=== PATIENT | male | born 2000 | race Caucasian/White ===

== ENCOUNTER 2023-05-05 12:49 | Emergency (ER) | payer OTHER, SELFPAY ==
[2023-05-05] VITALS (17 sets, daily range): BP systolic 121–150; BP diastolic 56–91; PULSE 71–105; RESP 14–27; TEMP 37.1; O2SAT 95–100; BMI 20.7
--- NOTE | 2023-05-05 | CRLHL7_ITS ---
For Patients: As a result of the Century Cures Act, medical imaging exams and procedure reports are released immediately into your electronic medical record. You may view this report before your referring provider. If you have questions, please contact your health care provider. INDICATION: Stroke. COMPARISON: None. TECHNIQUE: CT of the brain/head without the use of IV contrast. Multiplanar axial, coronal, and sagittal reformats were reconstructed. FINDINGS: The exam normal merida-white matter differentiation throughout. No intracranial hemorrhage. No mass, mass effect, or midline shift. The ventricles are normal in size and shape. No fracture or focal osseous lesion. The mastoid and middle ears are clear. The paranasal sinuses are clear. Included orbit and globe are normal. IMPRESSION: Normal head CT. Please note that all CT scans at this facility use dose modulation, iterative reconstruction, and/or weight-based dosing when appropriate to reduce radiation dose to as low as reasonably achievable. Dictated by Kim Salazar MD @ 05/05/2023 1:19:44 PM (Electronically Signed)
--- NOTE | 2023-05-05 13:00 | CRLHL7_ITS ---
For Patients: As a result of the Century Cures Act, medical imaging exams and procedure reports are released immediately into your electronic medical record. You may view this report before your referring provider. If you have questions, please contact your health care provider. CT ANGIOGRAM HEAD DATE: 05/05/2023 CLINICAL HISTORY: Patient with left-sided weakness. TECHNIQUE: Standard helical CT image acquisition through the intracranial circulation following intravenous administration of contrast material with bolus tracking. 2D and 3D MIP images for post-processing were performed and interpreted on an independent workstation and 3D images were permanently archived. COMPARISON: CT same day. FINDINGS: There is no proximal intracranial large vessel occlusion. There is no intracranial aneurysm. The right internal carotid artery is normal. The right middle cerebral artery and its branches are normal. The right anterior cerebral artery and its branches are normal. The left internal carotid artery is normal. The left middle cerebral artery and its branches are normal. The left anterior cerebral artery and its branches are normal. The anterior communicating artery is well visualized and appears normal. The right vertebral artery and PICA are normal. The left vertebral artery and PICA are normal. The left vertebral artery is dominant. The basilar artery is patent and appears normal. The right posterior cerebral artery is normal. The left posterior cerebral artery is normal. The visualized venous structures are patent. IMPRESSION: Patent proximal intracranial vasculature. Please note that all CT scans at this facility use dose modulation, iterative reconstruction, and/or weight-based dosing when appropriate to reduce radiation dose to as low as reasonably achievable. Dictated by: Romel Holliday MD @ 05/05/2023 13:58:44 (Electronically Signed)
--- NOTE | 2023-05-05 13:00 | CRLHL7_ITS ---
For Patients: As a result of the Century Cures Act, medical imaging exams and procedure reports are released immediately into your electronic medical record. You may view this report before your referring provider. If you have questions, please contact your health care provider. CT ANGIOGRAM NECK DATE: 05/05/2023 CLINICAL HISTORY: Patient with left-sided weakness. TECHNIQUE: Standard helical CT image acquisition of the neck up to the skull base after bolus intravenous contrast enhancement. 2D and 3D MIP images for post-processing were performed and interpreted on an independent workstation and 3D images were permanently archived. COMPARISON: CT same day. FINDINGS: The origins of the great vessels from the aortic arch are patent. The origin of the right vertebral artery is patent. The origin of the left vertebral artery is patent. The common carotid arteries are patent. There is no stenosis at the origin of the right internal carotid artery. There is no stenosis at the origin of the left internal carotid artery. The rest of the cervical segments of the internal carotid arteries are patent up to the skull base. The vertebral arteries are codominant. The cervical segments of the vertebral arteries are patent up to the skull base. The visualized lung apices are unremarkable. The thyroid gland is unremarkable. The soft tissues of the neck are unremarkable. There are degenerative changes in the cervical spine. IMPRESSION: Normal CTA of the neck. Please note that all CT scans at this facility use dose modulation, iterative reconstruction, and/or weight-based dosing when appropriate to reduce radiation dose to as low as reasonably achievable. Dictated by: Romel Holliday MD @ 05/05/2023 13:57:33 (Electronically Signed)
[2023-05-05 13:12] LABS: Basophils Absolute Auto 0.03 K/uL (0.00-0.30); Basophils Percent Auto 0.4 % (0.0-3.0); Eosinophils Absolute Auto 0.04 K/uL (0.00-0.50); Eosinophils Percent Auto 0.5 % (0.0-7.0); Hematocrit 42.6 % (37.0-53.0); Hemoglobin* 14.6 gm/dL (13.5-17.5); Lymphocytes Absolute Auto 2.41 K/uL (0.90-2.90); Lymphocytes Percent Auto 31.2 % (20-44); Mean Corpuscular HGB Conc 34 gm/dL (32-36); Mean Corpuscular Hemoglobin 31 pg (26-34); Mean Corpuscular Volume 91 fL (80-100); Monocytes Percent Auto 7.6 % (0.0-11.0); Neutrophils Absolute Auto 4.66 K/uL (1.7-7.0); Neutrophils Percent Auto 60.3 % (42.0-72.0); Platelet Count* 410 K/uL (140-440); RDW Coefficient of Variation % 11.3 % (11.5-15.5); Red Blood Count 4.69 m/uL (4.30-5.90); White Blood Count* 7.73 K/uL (4.50-11.00)
[2023-05-05 13:16] LABS: Slide Review Reflex No
[2023-05-05 13:23] LABS: Chloride* 104 mmol/L (96-114); Potassium* 3.7 mmol/L (3.6-5.1); Sodium* 140 mmol/L (135-149)
[2023-05-05 13:26] LABS: Anion Gap 12 mEq/L (7-15); Blood Urea Nitrogen* 15 mg/dL (5-24); Carbon Dioxide* 24 mmol/L (20-32); Creatinine* 0.8 mg/dL (0.5-1.5); Est. Creatinine Clearance* 154.26; Estimated Glomerular Filt Rate 128 ml/min; INR 1.06 (0.91-1.10); Prothrombin Time 14.5 Seconds
[2023-05-05 13:27] LABS: Calcium* 9.8 mg/dL (8.4-10.6); Glucose* 87 mg/dL (60-115); Partial Thromboplastin Time* 27 Seconds (23-33)
--- NOTE | 2023-05-05 14:00 | ED_ITS ---
HPI - General Adult General Chief complaint: Weakness <Leandra Howell MD - Last Filed: 05/05/23 15:20> Stated complaint: difficulty breathing,muscles locked up <Leandra Howell MD - Last Filed: 05/05/23 15:20> Time Seen by Provider: 05/05/23 13:01 <Leandra Howell MD - Last Filed: 05/05/23 15:20> Source: patient <Leandra Howell MD - Last Filed: 05/05/23 15:20> Mode of arrival: ambulatory <Leandra Howell MD - Last Filed: 05/05/23 15:20> Limitations: no limitations <Leandra Howell MD - Last Filed: 05/05/23 15:20> History of Present Illness HPI narrative: 22-year-old male presenting today with left-sided weakness. Patient states that this is the 3rd time this has happened to him this year. The 1st time and 2nd time both went away on their own. States that he can not really move the left side of his body. It started off with tingling that started on the top of his head, moved down his face, into his torso and arm, down into his leg and foot. He also complains of right sided hand and forearm tingling. He states that his hands are both cramps and he can not move them. He also had speech difficulty earlier where he could not talk. He stated that his tongue felt thick and swollen and words when not come out. This has since resolved, however patient tells me that it will happen again as it has come and gone 3 times since all of his symptoms started at 12:30 p.m. this afternoon. He does feel like his symptoms in general are slowly getting better. Patient has a history of ?really bad depression and anxiety?. He states that all the medications he has tried in the past have caused him to become suicidal, therefore he is not on any medications and he does not see a therapist. He does have a history of panic attacks. <Leandra Howell MD - Last Filed: 05/05/23 15:20> Related Data Home medications: Home Medications Medication Instructions Recorded Confirmed No Known Home Medications 05/05/23 05/05/23 <Leandra Howell MD - Last Filed: 05/05/23 15:20> Allergies/adverse reactions: Allergies Allergy/AdvReac Type Severity Reaction Status Date / Time amoxicillin Allergy Unknown Verified 05/05/23 13:24 <Leandra Howell MD - Last Filed: 05/05/23 15:20> Review of Systems Status of ROS: Reports: 10 or more systems reviewed and unremarkable except as noted in History and below <Leandra Howell MD - Last Filed: 05/05/23 15:20> PFSH PFS Social History: Social History Smoking Status: Current every day smoker Do you use any of these nicotine containing products: E-Cigarettes and Vaping Products Second hand tobacco smoke exposure: No How often do you have a drink containing alcohol: never AUDIT-C Alcohol total score: 0 Non-prescribed substance use: marijuana (any form) <Leandra Howell MD - Last Filed: 05/05/23 15:20> Exam Narrative: Exam Narrative: Well-nourished well-developed patient in no acute distress. Alert and oriented x3. Answers questions appropriately. Mood is anxious but affect is appropriate. Thoughts are goal oriented and rational. No tangential or magical thinking noted. Patient speaks in full sentences without needing to catch his breath. He does pause a few times in states ?words are hard?. HEENT: Normocephalic atraumatic. Pupils are equally round reactive to light. Extraocular muscles are intact. Conjunctivae are moist without any icterus noted. Moist mucous membranes. Posterior pharynx is normal. Neck is soft without any lymphadenopathy or thyromegaly. No masses are appreciated. Cardiovascular: Heart is regular rate and rhythm S1 and S2 are present without any murmurs. Lungs: Clear to auscultation bilaterally no wheezes rhonchi or rales are appreciated. Patient takes deep breaths without any discomfort. Abdomen: Soft and nontender nondistended with normal bowel sounds. No guarding or rebound. No masses or organomegaly appreciated. Extremities: Bilateral lower extremities are without edema. Normal DP and PT pulses. Skin: Well perfused without any obvious rashes. Reflexes are 2+ and symmetric at the knees. Patient states that he cannot stand and so I cannot perform a Romberg test. Cranial nerves 3-12 are entirely normal. There is no nystagmus either horizontally or vertically. And patient does not ambulate at my request. When asked the patient to lift arms off the bed both the left and the right arm move very slowly and he seems to be straining very hard to move either arm. Same thing occurs with his legs, however he barely lifts the left leg off the bed. He does not have any movement at the ankle and feet of the left or the right when I ask him to move, until I remind him to flex and extend bilaterally. <Leandra Howell MD - Last Filed: 05/05/23 15:20> Const: Vital Signs, click to edit/add: Vital Signs - 24 hr 05/05/23 12:50 05/05/23 13:00 05/05/23 13:00 Temperature 98.8 F Pulse Rate Pulse Rate [Pulse Oximeter] 91 91 Respiratory Rate 18 Blood Pressure Blood Pressure [Le ft Upper Arm] 142/82 H Pulse Oximetry 100 100 Oxygen Delivery Me thod Room Air 05/05/23 13:00 05/05/23 13:00 05/05/23 13:00 Temperature Pulse Rate Pulse Rate [Pulse Oximeter] 105 H 105 H Respiratory Rate 24 27 H Blood Pressure Blood Pressure [Le ft Upper Arm] 131/63 Pulse Oximetry 100 100 Oxygen Delivery Mt thod Room Air Room Air 05/05/23 13:15 05/05/23 13:15 05/05/23 13:30 Temperature Pulse Rate Pulse Rate [Pulse Oximeter] 96 96 96 Respiratory Rate 24 Blood Pressure Blood Pressure [Le ft Upper Arm] 150/91 H Pulse Oximetry 100 Oxygen Delivery Mt thod Room Air 05/05/23 13:30 05/05/23 13:45 05/05/23 13:45 Temperature Pulse Rate Pulse Rate [Pulse Oximeter] 96 101 H 99 Respiratory Rate 18 18 Blood Pressure Blood Pressure [Le ft Upper Arm] 137/81 121/70 Pulse Oximetry 100 99 Oxygen Delivery Me thod Room Air Room Air 05/05/23 14:00 05/05/23 14:00 05/05/23 14:15 Temperature Pulse Rate Pulse Rate [Pulse Oximeter] 83 83 76 Respiratory Rate 18 16 Blood Pressure Blood Pressure [Le ft Upper Arm] 127/75 122/62 Pulse Oximetry 95 96 Oxygen Delivery Me thod Room Air Room Air 05/05/23 14:15 05/05/23 14:30 05/05/23 14:30 Temperature Pulse Rate Pulse Rate [Pulse Oximeter] 76 74 74 Respiratory Rate 16 Blood Pressure Blood Pressure [Le ft Upper Arm] 121/58 L Pulse Oximetry 98 Oxygen Delivery Me thod Room Air 05/05/23 14:45 05/05/23 14:45 05/05/23 15:00 Temperature Pulse Rate Pulse Rate [Pulse Oximeter] 72 72 71 Respiratory Rate 14 14 Blood Pressure Blood Pressure [Le ft Upper Arm] 143/62 H 136/73 Pulse Oximetry 98 98 Oxygen Delivery Me thod Room Air Room Air 05/05/23 15:00 05/05/23 15:30 05/05/23 15:30 Temperature Pulse Rate Pulse Rate [Pulse Oximeter] 71 74 74 Respiratory Rate 14 Blood Pressure Blood Pressure [Le ft Upper Arm] 122/72 Pulse Oximetry 96 Oxygen Delivery Me thod Room Air 05/05/23 16:00 05/05/23 16:02 Temperature Pulse Rate 74 71 Pulse Rate [Pulse Oximeter] Respiratory Rate Blood Pressure 121/56 L Blood Pressure [Le ft Upper Arm] Pulse Oximetry 98 97 Oxygen Delivery Me thod <Leandra Howell MD - Last Filed: 05/05/23 15:20> Vital Signs, click to edit/add: Vital Signs - 24 hr 05/05/23 12:50 05/05/23 13:00 05/05/23 13:00 Temperature 98.8 F Pulse Rate Pulse Rate [Pulse Oximeter] 91 91 Respiratory Rate 18 Blood Pressure Blood Pressure [Le ft Upper Arm] 142/82 H Pulse Oximetry 100 100 Oxygen Delivery Me thod Room Air 05/05/23 13:00 05/05/23 13:00 05/05/23 13:00 Temperature Pulse Rate Pulse Rate [Pulse Oximeter] 105 H 105 H Respiratory Rate 24 27 H Blood Pressure Blood Pressure [Le ft Upper Arm] 131/63 Pulse Oximetry 100 100 Oxygen Delivery Me thod Room Air Room Air 05/05/23 13:15 05/05/23 13:15 05/05/23 13:30 Temperature Pulse Rate Pulse Rate [Pulse Oximeter] 96 96 96 Respiratory Rate 24 Blood Pressure Blood Pressure [Le ft Upper Arm] 150/91 H Pulse Oximetry 100 Oxygen Delivery Me thod Room Air 05/05/23 13:30 05/05/23 13:45 05/05/23 13:45 Temperature Pulse Rate Pulse Rate [Pulse Oximeter] 96 101 H 99 Respiratory Rate 18 18 Blood Pressure Blood Pressure [Le ft Upper Arm] 137/81 121/70 Pulse Oximetry 100 99 Oxygen Delivery Me thod Room Air Room Air 05/05/23 14:00 05/05/23 14:00 05/05/23 14:15 Temperature Pulse Rate Pulse Rate [Pulse Oximeter] 83 83 76 Respiratory Rate 18 16 Blood Pressure Blood Pressure [Le ft Upper Arm] 127/75 122/62 Pulse Oximetry 95 96 Oxygen Delivery Me thod Room Air Room Air 05/05/23 14:15 05/05/23 14:30 05/05/23 14:30 Temperature Pulse Rate Pulse Rate [Pulse Oximeter] 76 74 74 Respiratory Rate 16 Blood Pressure Blood Pressure [Le ft Upper Arm] 121/58 L Pulse Oximetry 98 Oxygen Delivery Me thod Room Air 05/05/23 14:45 05/05/23 14:45 05/05/23 15:00 Temperature Pulse Rate Pulse Rate [Pulse Oximeter] 72 72 71 Respiratory Rate 14 14 Blood Pressure Blood Pressure [Le ft Upper Arm] 143/62 H 136/73 Pulse Oximetry 98 98 Oxygen Delivery Me thod Room Air Room Air 05/05/23 15:00 05/05/23 15:30 05/05/23 15:30 Temperature Pulse Rate Pulse Rate [Pulse Oximeter] 71 74 74 Respiratory Rate 14 Blood Pressure Blood Pressure [Le ft Upper Arm] 122/72 Pulse Oximetry 96 Oxygen Delivery Me thod Room Air 05/05/23 16:00 05/05/23 16:02 Temperature Pulse Rate 74 71 Pulse Rate [Pulse Oximeter] Respiratory Rate Blood Pressure 121/56 L Blood Pressure [Le ft Upper Arm] Pulse Oximetry 98 97 Oxygen Delivery Me thod <True Rodríguez MD - Last Filed: 05/05/23 18:53> Course Course ED Course: Upon triage-patient went straight to head CT given his stroke like symptoms. Head CT, head and neck CT were all unremarkable. I went to examine the patient at this time, see exam above. Approximately 3 minutes after I left the room I did see the patient walk to the bathroom without assistance the despite not being able to move the left leg off the bed when asked to. EKG, read by me, shows sinus tachycardia with a pulse of 112. Lab work is completely unremarkable. Did consult with Dr. Yin, neurologist at [facility], who did recommend a brain MRI with and without contrast. <Leandra Howell MD - Last Filed: 05/05/23 15:20> Vital Signs Vital signs: Initial Vital Signs Pulse Rate 91 05/05/23 12:50 Vital Signs Pulse Rate 91 05/05/23 12:50 Temperature 98.8 F 05/05/23 13:00 Pulse Rate 71 05/05/23 16:02 Respiratory Rate 14 05/05/23 15:30 Blood Pressure 121/56 L 05/05/23 16:02 Pulse Oximetry 97 05/05/23 16:02 Oxygen Delivery Method Room Air 05/05/23 15:30 <Leandra Howell MD - Last Filed: 05/05/23 15:20> Initial Vital Signs Pulse Rate 91 05/05/23 12:50 Vital Signs Pulse Rate 91 05/05/23 12:50 Temperature 98.8 F 05/05/23 13:00 Pulse Rate 71 05/05/23 16:02 Respiratory Rate 14 05/05/23 15:30 Blood Pressure 121/56 L 05/05/23 16:02 Pulse Oximetry 97 05/05/23 16:02 Oxygen Delivery Method Room Air 05/05/23 15:30 <True Rodríguez MD - Last Filed: 05/05/23 18:53> Medical Decision Making MDM Narrative Medical decision making narrative: 22-year-old male with neurologic symptoms, not caused by a stroke. I do believe symptoms are likely secondary to untreated anxiety. Recommend that he follow up with primary care provider to discuss next steps in treatment. Patient states that he already attempted to call a therapist and set up an appointment this morning. <Leandra Howell MD - Last Filed: 05/05/23 15:20> 22-year-old male with neurologic symptoms, not caused by a stroke. I do believe symptoms are likely secondary to untreated anxiety. Recommend that he follow up with primary care provider to discuss next steps in treatment. Patient states that he already attempted to call a therapist and set up an appointment this morning. MRI is obtained and results from radiologist show no acute findings. I did relay these results to the patient who is thoroughly reassured with a good workup today. He does have plans to connect with a therapist for management of his anxiety symptoms. <True Rodríguez MD - Last Filed: 05/05/23 18:53> Lab Data Lab results reviewed: Yes I reviewed the patient's lab results <Leandra Howell MD - Last Filed: 05/05/23 15:20> Labs: Lab Results 05/05/23 Range/Units 13:06 WBC 7.73 (4.50-11.00) K/uL RBC 4.69 (4.30-5.90) m/uL Hgb 14.6 (13.5-17.5) gm/dL Hct 42.6 (37.0-53.0) % MCV 91 (80-100) fL MCH 31 (26-34) pg MCHC 34 (32-36) gm/dL RDW Coeff of Rosmery 11.3 L (11.5-15.5) % Plt Count 410 (140-440) K/uL Neut % (Auto) 60.3 (42.0-72.0) % Lymph % (Auto) 31.2 (20-44) % [place] % (Auto) 7.6 (0.0-11.0) % Eos % (Auto) 0.5 (0.0-7.0) % Baso % (Auto) 0.4 (0.0-3.0) % Neut # (Auto) 4.66 (1.7-7.0) K/uL Lymph # (Auto) 2.41 (0.90-2.90) K/uL [place] # (Auto) 0.60 (0.00-0.90) K/UL Eos # (Auto) 0.04 (0.00-0.50) K/uL Baso # (Auto) 0.03 (0.00-0.30) K/uL Abs Immat Gran (auto) 0.00 (0.00-0.30) K/uL Imm/Tot Granulo (auto) 0.0 % INR 1.06 (0.91-1.10) APTT 27 (23-33) Seconds Sodium 140 (135-149) mmol/L Potassium 3.7 (3.6-5.1) mmol/L Chloride 104 (96-114) mmol/L Carbon Dioxide 24 (20-32) mmol/L Anion Gap 12 (7-15) mEq/L BUN 15 (5-24) mg/dL Creatinine 0.8 (0.5-1.5) mg/dL Estimated Creat Clear 154.26 Estimated GFR 128 ml/min Glucose 87 (60-115) mg/dL Calcium 9.8 (8.4-10.6) mg/dL <Leandra Howell MD - Last Filed: 05/05/23 15:20> Lab Results 05/05/23 Range/Units 13:06 WBC 7.73 (4.50-11.00) K/uL RBC 4.69 (4.30-5.90) m/uL Hgb 14.6 (13.5-17.5) gm/dL Hct 42.6 (37.0-53.0) % MCV 91 (80-100) fL MCH 31 (26-34) pg MCHC 34 (32-36) gm/dL RDW Coeff of Rosmery 11.3 L (11.5-15.5) % Plt Count 410 (140-440) K/uL Neut % (Auto) 60.3 (42.0-72.0) % Lymph % (Auto) 31.2 (20-44) % [place] % (Auto) 7.6 (0.0-11.0) % Eos % (Auto) 0.5 (0.0-7.0) % Baso % (Auto) 0.4 (0.0-3.0) % Neut # (Auto) 4.66 (1.7-7.0) K/uL Lymph # (Auto) 2.41 (0.90-2.90) K/uL [place] # (Auto) 0.60 (0.00-0.90) K/UL Eos # (Auto) 0.04 (0.00-0.50) K/uL Baso # (Auto) 0.03 (0.00-0.30) K/uL Abs Immat Gran (auto) 0.00 (0.00-0.30) K/uL Imm/Tot Granulo (auto) 0.0 % INR 1.06 (0.91-1.10) APTT 27 (23-33) Seconds Sodium 140 (135-149) mmol/L Potassium 3.7 (3.6-5.1) mmol/L Chloride 104 (96-114) mmol/L Carbon Dioxide 24 (20-32) mmol/L Anion Gap 12 (7-15) mEq/L BUN 15 (5-24) mg/dL Creatinine 0.8 (0.5-1.5) mg/dL Estimated Creat Clear 154.26 Estimated GFR 128 ml/min Glucose 87 (60-115) mg/dL Calcium 9.8 (8.4-10.6) mg/dL <True Rodríguez MD - Last Filed: 05/05/23 18:53> Imaging Data CT scan - head: Attestation: I have reviewed the pertinent imaging results. <Leandra Howell MD - Last Filed: 05/05/23 15:20> Radiologist's impression: TECHNIQUE: CT of the brain/head without the use of IV contrast. Multiplanar axial, coronal, and sagittal reformats were reconstructed. FINDINGS: The exam normal merida-white matter differentiation throughout. No intracranial hemorrhage. No mass, mass effect, or midline shift. The ventricles are normal in size and shape. No fracture or focal osseous lesion. The mastoid and middle ears are clear. The paranasal sinuses are clear. Included orbit and globe are normal. IMPRESSION: Normal head CT. <Leandra Howell MD - Last Filed: 05/05/23 15:20> CTA head neck: Attestation: I have reviewed the pertinent imaging results. <Leandra Howell MD - Last Filed: 05/05/23 15:20> Radiologist's impression: TECHNIQUE: Standard helical CT image acquisition through the intracranial circulation following intravenous administration of contrast material with bolus tracking. 2D and 3D MIP images for post-processing were performed and interpreted on an independent workstation and 3D images were permanently archived. COMPARISON: CT same day. FINDINGS: There is no proximal intracranial large vessel occlusion. There is no intracranial aneurysm. The right internal carotid artery is normal. The right middle cerebral artery and its branches are normal. The right anterior cerebral artery and its branches are normal. The left internal carotid artery is normal. The left middle cerebral artery and its branches are normal. The left anterior cerebral artery and its branches are normal. The anterior communicating artery is well visualized and appears normal. The right vertebral artery and PICA are normal. The left vertebral artery and PICA are normal. The left vertebral artery is dominant. The basilar artery is patent and appears normal. The right posterior cerebral artery is normal. The left posterior cerebral artery is normal. The visualized venous structures are patent. IMPRESSION: Patent proximal intracranial vasculature. TECHNIQUE: Standard helical CT image acquisition of the neck up to the skull base after bolus intravenous contrast enhancement. 2D and 3D MIP images for post-processing were performed and interpreted on an independent workstation and 3D images were permanently archived. COMPARISON: CT same day. FINDINGS: The origins of the great vessels from the aortic arch are patent. The origin of the right vertebral artery is patent. The origin of the left vertebral artery is patent. The common carotid arteries are patent. There is no stenosis at the origin of the right internal carotid artery. There is no stenosis at the origin of the left internal carotid artery. The rest of the cervical segments of the internal carotid arteries are patent up to the skull base. The vertebral arteries are codominant. The cervical segments of the vertebral arteries are patent up to the skull base. The visualized lung apices are unremarkable. The thyroid gland is unremarkable. The soft tissues of the neck are unremarkable. There are degenerative changes in the cervical spine. IMPRESSION: Normal CTA of the neck. <Leandra Howell MD - Last Filed: 05/05/23 15:20> ECG Data Attestation: I personally reviewed and interpreted this ECG as follows: <Leandra Howell MD - Last Filed: 05/05/23 15:20> Discharge Plan Discharge Clinical Impression: Numbness and tingling, Anxiety <Leandra Howell MD - Last Filed: 05/05/23 15:20> Patient Disposition: Home, Self-Care <Leandra Howell MD - Last Filed: 05/05/23 15:20> Condition: Stable <Leandra Howell MD - Last Filed: 05/05/23 15:20> Additional Instructions: Your workup was unremarkable today. Head CT and MRI both do not show any evidence of strokes. Your symptoms are likely due to uncontrolled anxiety. I do recommend you follow-up with a therapist as well as your primary care provider to discuss next steps. <Leandra Howell MD - Last Filed: 05/05/23 15:20> Prescriptions: No Action No Known Home Medications <Leandra Howell MD - Last Filed: 05/05/23 15:20> Follow Up/Referrals: Provider,Not a Local [Primary Care Provider] - <Leandra Howell MD - Last Filed: 05/05/23 15:20> Stand Alone Forms: My[facility] Info Instructions <Leandra Howell MD - Last Filed: 05/05/23 15:20>
--- NOTE | 2023-05-05 14:15 | CRLHL7_ITS ---
For Patients: As a result of the Century Cures Act, medical imaging exams and procedure reports are released immediately into your electronic medical record. You may view this report before your referring provider. If you have questions, please contact your health care provider. INDICATION: Stroke-like symptoms. TECHNIQUE: Brain MRI without contrast. The following sequences were obtained: Sagittal T1 weighted sequence. DWI and ADC mapping sequences. Axial FLAIR and MARCOS T2 weighted sequences. Susceptibility or GRE sequence. COMPARISON: Head CT from 05/05/2023. FINDINGS: No evidence of acute ischemia. No evidence of acute or chronic intracranial blood products. No pathologic intracranial signal abnormality. No mass effect or herniation. No hydrocephalus or extra-axial collections. The pituitary gland, parasellar structures and optic chiasm are normal. Posterior fossa is normal. All the major intracranial vascular structures demonstrate normal flow-related signal. The orbital contents are normal. No calvarial or skull base marrow replacing process. No obstructive sinus disease. No extracranial soft tissue findings. IMPRESSION: 1. No significant intracranial pathology. Dictated by Taavres Camp MD @ 05/05/2023 5:57:01 PM (Electronically Signed)
--- NOTE | 2023-05-05 15:30 | ED.NURSE ---
Stroke code discontinued, per
== END 2023-05-05 19:10 | disposition home or self-care (01) ==
PROVIDERS: Family Medicine; Emergency Provider Emergency Medicine Emergency Medical Services
DX: R20.0 Anesthesia of skin (principal); F41.9 Anxiety disorder, unspecified
CPT/HCPCS: 36415; 70450; 70496; 70498; 70551; 80048; 82962; 85025; 85610; 85730; 93005; 94761; 99284; 99285; Q9967